=== PATIENT | female | born 1980 | race Two or more races ===

== ENCOUNTER 2022-07-14 01:37 | Inpatient (IN) | payer OTHER ==
[~2022-07-14] VITALS: Ht 170.2 cm; Wt 79.4 kg
--- NOTE | 2022-07-14 01:45 | NUR ---
PACIENTE ALERTA Y ORIENTADA POR MICHELLE. REFIERE DOLOR ABDOMINAL DESDE EL DOUGIE Y DIARREAS 20 EN LAS ULTIMAS 24HRS.
[2022-07-14] MEDS ORDERED: GRALISE600 MG (01:47)
--- NOTE | 2022-07-14 03:03 | NUR ---
PACIENTE ALERTA Y ORIENTADA X3. SE ORIENTA SOBRE TX Y PROCEDIMIENTO A REALIZAR Y REFIRIO ENTENDER. SE ADMINISTRA MEDICAMENTOS ORDENADOS POR MD. SE REALIZA MUESTRAS DE LABORATORIO BAJO MEDIDAS ASEPTICAS. PENDIENTE MUESTRAS DE FECAL Y U/A. SE MANTIENE BAJO OBSERVACION POR CAMBIOS SIGNIFICATIVOS.
--- NOTE | 2022-07-14 07:15 | NUR ---
SE RECIBE PACIENTE DE TURNO ANTERIOR ALERTA Y ORIENTADA EN ERMIAS PTE CON VENOPUNCION PATENTE Y NITIN DE EDEMA BAJANDO 0.9NSS @175ML. PTE PENDIENTE ENTREGA DE FECAL Y U/A.
[2022-07-24] MEDS ORDERED: INTESTINEX680 M1 PO (16:33)
[2022-07-24] MEDS ORDERED: MACROBID 100 M100 MG PO (16:33)
[2022-07-24] MEDS ORDERED: PANTOPRAZOLE SO40 MG PO (16:33)
== END 2022-07-24 21:47 | disposition home or self-care (01) | DRG 392 ==
LOC: ER 01:37 → MEDI 23:16
PROVIDERS: ADMIT Internal Medicine; ATTEND Internal Medicine
PROC: BW21ZZZ Computerized Tomography (CT Scan) of Abdomen and Pelvis (ICD-10-PCS; principal; 2022-07-14)
PROC: B54DZZZ Ultrasonography of Bilateral Lower Extremity Veins (ICD-10-PCS; 2022-07-22)
PROC: B246ZZZ Ultrasonography of Right and Left Heart (ICD-10-PCS; 2022-07-22)
DX: A08.8 Other specified intestinal infections (principal); N39.0 Urinary tract infection, site not specified; K52.89 Other specified noninfective gastroenteritis and colitis; E87.6 Hypokalemia; R60.0 Localized edema; B96.29 Other Escherichia coli [E. coli] as the cause of diseases classified elsewhere